=== PATIENT | male | born 1980 | race Two or more races ===

== ENCOUNTER 2020-07-22 07:32 | Emergency (ER) | payer OTHER ==
[~2020-07-22] VITALS: Ht 165.1 cm; Wt 79.4 kg
== END 2020-07-22 18:01 | disposition home or self-care (01) ==
LOC: ER 07:32 → EDBD 07:49 → ER 07:49
DX: K57.92 Diverticulitis of intestine, part unspecified, without perforation or abscess without bleeding (principal); R10.32 Left lower quadrant pain; Z03.818 Encounter for observation for suspected exposure to other biological agents ruled out

== ENCOUNTER 2020-08-14 09:15 | Inpatient (IN) | payer OTHER ==
[~2020-08-14] VITALS: Ht 165.1 cm; Wt 77.1 kg
[2020-08-24] MEDS ORDERED: OXYC1TAB9 PO (09:24)
[2020-08-24] MEDS ORDERED: HYOSCYAMINE0.125 M1 SL (09:24)
== END 2020-08-24 16:49 | disposition home or self-care (01) | DRG 331 ==
LOC: SURH 08-21 06:42 → O/R 08-21 06:42 → SURH 08-21 07:00
PROVIDERS: ADMIT Surgery; ATTEND Surgery
PROC: 0DBP4ZZ Excision of Rectum, Percutaneous Endoscopic Approach (ICD-10-PCS; 2020-08-21)
PROC: 0DTN4ZZ Resection of Sigmoid Colon, Percutaneous Endoscopic Approach (ICD-10-PCS; principal; 2020-08-21 07:00)
DX: K57.32 Diverticulitis of large intestine without perforation or abscess without bleeding (principal); R19.4 Change in bowel habit; G47.33 Obstructive sleep apnea (adult) (pediatric); F17.209 Nicotine dependence, unspecified, with unspecified nicotine-induced disorders

== ENCOUNTER 2020-09-02 08:16 | Emergency (ER) | payer OTHER ==
[~2020-09-02] VITALS: Ht 165.1 cm; Wt 77.1 kg
[~2020-09-02 08:16] MED LIST: HYOSCYAMINE0.125 M1 SL; OXYC1TAB9 PO
== END 2020-09-02 14:26 | disposition home or self-care (01) ==
LOC: ER 08:16
DX: M54.5 Low back pain (principal)

== ENCOUNTER 2021-11-14 22:18 | Emergency (ER) | payer OTHER ==
[~2021-11-14] VITALS: Ht 165.1 cm; Wt 79.4 kg
== END 2021-11-15 01:53 | disposition home or self-care (01) ==
LOC: ER 22:18
DX: T16.1XXA Foreign body in right ear, initial encounter (principal); W45.8XXA Other foreign body or object entering through skin, initial encounter; Y93.F9 Activity, other caregiving; Y92.9 Unspecified place or not applicable